=== PATIENT | female | born 1965 | race Caucasian/White ===

== ENCOUNTER 2016-07-09 11:40 | Day surgery (SDC) | payer OTHER ==
[2016-07-08 11:43] VITALS: BMI 33.2
[2016-07-09 12:47] VITALS: TEMP 97.6
[2016-07-09 13:12] VITALS: PULSE 70
[2016-07-09 14:01] VITALS: BP 116/70
--- NOTE | 2016-07-10 11:56 | PATH ---
Surgical Pathology Report Patient Name: STEPHANIE MOE [facility]. Rec. #: [id number] /Age/Gender: 1965 (Age: 51) / F Account: [id number] Location: [facility]-ENDOS[facility] Taken: 07/09/2016 Received: 07/09/2016 Reported: 07/10/2016 Physicians: Christofer Moreau D.O. Specimen(s) Received A: BX RIGHT COLON B: BX TRANSVERSE COLON C: BX LEFT COLON Clinical History Diarrhea Hemorrhoids, diverticulosis Final Diagnosis A. COLON, RIGHT, BIOPSY: COLONIC MUCOSA WITH RARE LAMINA PROPRIA NEUTROPHILS AND MILD FOCAL INCREASE IN EOSINOPHILS (SEE COMMENT). NO EVIDENCE OF SIGNIFICANT ARCHITECTURAL DISTORTION, GRANULOMATA OR DYSPLASIA; NO EVIDENCE OF MICROSCOPIC COLITIS. Comment: These findings are non-specific and may represent mild inflammation due to infections or drug/toxin injury. No significant features of chronicity are seen. No definitive histologic features of microscopic colitis are identified. Clinical and endoscopic correlations are suggested. B. COLON, TRANSVERSE, BIOPSY: COLONIC MUCOSA WITHOUT SIGNIFICANT PATHOLOGIC CHANGES. NO EVIDENCE OF ACTIVE INFLAMMATION, SIGINIFICANT ARCHITECTURAL DISTORTION, GRANULOMATA OR DYSPLASIA; NO EVIDENCE OF MICROSCOPIC COLITIS. C. COLON, LEFT, BIOPSY: COLONIC MUCOSA WITH FOCAL SMALL NON-SPECIFIC MUCOSAL HEMORRHAGE. NO EVIDENCE OF ACTIVE INFLAMMATION, SIGINIFICANT ARCHITECTURAL DISTORTION, GRANULOMATA OR DYSPLASIA; NO EVIDENCE OF MICROSCOPIC COLITIS. Electronically Signed Rahul Garcia M.D. Gross Description A. Received in formalin, labeled "biopsy right colon" are 2 landry, irregular portions of soft tissue averaging 0.3 cm in greatest dimension. The specimens are submitted in toto in one cassette. B. Received in formalin, labeled "biopsy transverse colon" are 5 landry, irregular portions of soft tissue ranging from 0.1-0.5 cm in greatest dimension. The specimens are submitted in toto in one cassette. C. Received in formalin, labeled "biopsy left colon" is a landry, irregular portion of soft tissue measuring 0.2 cm in greatest dimension. The specimen is submitted in toto in one cassette. 07/09/2016 saudi07/09/2016
== END 2016-07-09 14:01 | disposition home or self-care (01) ==
LOC: JASU-ENDO 11:40
PROVIDERS: ATTEND Internal Medicine Gastroenterology
PROC: 0DBL8ZX Excision of Transverse Colon, Via Natural or Artificial Opening Endoscopic, Diagnostic (ICD-10-PCS; 2016-07-09)
PROC: 0DBM8ZX Excision of Descending Colon, Via Natural or Artificial Opening Endoscopic, Diagnostic (ICD-10-PCS; 2016-07-09)
PROC: 0DBK8ZX Excision of Ascending Colon, Via Natural or Artificial Opening Endoscopic, Diagnostic (ICD-10-PCS; principal; 2016-07-09 12:00)
DX: R19.7 Diarrhea, unspecified (principal); K57.30 Diverticulosis of large intestine without perforation or abscess without bleeding; K64.0 First degree hemorrhoids; F41.9 Anxiety disorder, unspecified; F31.9 Bipolar disorder, unspecified; J45.909 Unspecified asthma, uncomplicated; E03.9 Hypothyroidism, unspecified; M19.90 Unspecified osteoarthritis, unspecified site; M79.7 Fibromyalgia
CPT/HCPCS: 84703; 87045; 87046; 87177; 87207; 87209; 87328; 87329; 88305-TC

== ENCOUNTER 2016-08-10 19:45 | Emergency (ER) | payer OTHER ==
[2016-08-10] MEDS ORDERED: TETRACAINE 0.5% HCL 0.6ML DROPPER.BOTTLE OD ONE (19:52)
[2016-08-10 19:53] VITALS: BMI 32.6
--- NOTE | 2016-08-10 19:59 | PDOC ---
Rapid Medical Evaluation Chief Complaint: Eye Problem Time Seen by Provider: 08/10/16 19:48 Medical Evaluation: Allergies Allergy/AdvReac Type Severity Reaction Status Date / Time latex Allergy Verified 08/10/16 19:50 walnuts Allergy Uncoded 08/10/16 19:50 Vital Signs Temp Pulse Resp BP Pulse Ox 98.5 F 83 18 151/86 99 08/10/16 19:50 08/10/16 19:50 08/10/16 19:50 08/10/16 19:50 08/10/16 19:50 08/10/16 19:55 RME Note: I have performed a brief, in-person evaluation of this patient . This patient presents with CC: Severe right eye pain x 2 hours in back of eye; with vision changes; wore contacts yesterday Pertinent PE findings are: ID fingers; no redness/ drainage I have ordered: tetracaine= only slight relief relieve The patient will proceed to ED for further evaluation.
[2016-08-10] MEDS ORDERED: TETRACAINE 0.5% OPHTH SOLN 2 ML BOTTLE ONE (20:47)
--- NOTE | 2016-08-10 21:16 | PDOC ---
History of Present Illness - General Chief Complaint: Eye Problem Stated Complaint: RT EYE PAIN/SWOLLEN/HEADACHE Time Seen by Provider: 08/10/16 19:48 - History of Present Illness Initial Comments: 08/10/16 21:15 CHIEF COMPLAINT: eye pain/headache HISTORY OF PRESENT ILLNESS: 51 yo F with hx of migraines, chronic back pain, lupus, fibromyalgia, hypothyroidism, GERD,asthma presents to ED with severe pain to right eye and CASTREJON x 6 hours. Patient states that the pain began on the left side of her head and moved to the right side quickly, and the R eye feels much worse. She does report discomfort behind her R eye as well as to her R religious. She also reports blurry vision to both eyes and reports that she has had intermittent vision changes to her R eye for 3 weeks, and even after getting new glasses she will have sudden vision loss to her R eye, sometimes even while driving. She states this does not feel like any migraine she has ever had. No recent travel or sick contacts. PAST MEDICAL HISTORY: Denies past medical history FAMILY HISTORY: Denies SOCIAL HISTORY: Marijuana use. Denies tobacco, alcohol, illicit drug use. SURGICAL HISTORY: Denies ALLERGIES: latex, walnuts REVIEW OF SYSTEMS General/Constitutional: Denies fever or chills. Denies weakness, weight change. HEENT: Pain to R eye x 6 hours, initally started from left eye. Blurry vision. Denies ear pain or discharge. Denies sore throat. Cardiovascular: Denies chest pain or shortness of breath. Respiratory: Denies cough, wheezing, or hemoptysis. Gastrointestinal: Denies nausea, vomiting, diarrhea or constipation. Denies rectal bleeding. Genitourinary: Denies dysuria, frequency, or change in urination. Musculoskeletal: Denies joint or muscle swelling or pain. Denies neck or back pain. Skin and breasts: Denies rash or easy bruising. Neurologic: Headache x 6 hours. Denies vertigo, loss of consciousness, or loss of sensation. PHYSICAL EXAM General Appearance: Well-appearing, appropriately dressed. No apparent distress. HEENT: Tenderness to R religious on palpation, patient with difficulty opening eyes , mild tearing bilaterally. EOMI, PERRLA, normal ENT inspection, normal voice, TMs normal, pharynx normal. No conjunctival pallor. No photophobia, scleral icterus. Respiratory/Chest: Lungs CTAB. Cardiovascular: RRR. S1, S2. Gastrointestinal/Abdominal: Normal bowel sounds. Abdomen soft, non-distended. No tenderness or rebound tenderness. No organomegaly, pulsatile mass, guarding , hernia, hepatomegaly, splenomegaly. Lymphatic: No adenopathy, tenderness. Musculoskeletal/Extremities: Normal inspection. FROM of all extremities, normal capillary refill. Pelvis Stable. No CVA tenderness. No tenderness to extremities, pedal edema, swelling, erythema or deformity. Integumentary: Appropriate color, dry, warm. No cyanosis, erythema, jaundice or rash Neurologic: alignment mechanic II-XII intact. Fully oriented, alert. Appropriate mood/affect. Motor strength 5/5. No appreciable EOM palsy, facial droop or sensory deficit. A&Ox3, follow commands, respond appropriately CN2-12: conjugate gaze, pupil round, equal and reactive to light. Visual field full to confrontation. EOMI without nystagmus, pursuit is smooth without saccade. Facial sensation and muscle activation intact bilaterally. Hearing intact bilaterally. Palate elevate symmetrically. Shoulder shrug and neck turn full strength. Tongue protrude midline. Motor: UE and LE strength 5/5 throughout bilaterally. Muscle tone and bulk normal. Cerebellar: Rapid-alternating movement with regular rhythm without bradykinesia. Bowhlx-ua-glil and wolp-ko-bcgn intact bilaterally without dysmetria or overshoot. Gait narrow based. No shuffling. Full hip flexion and knee flexion. Negative Romberg No involuntary movement noted. No pronator drift. No clonus. Past History - Past Medical History Allergies/Adverse Reactions: Allergies Allergy/AdvReac Type Severity Reaction Status Date / Time latex Allergy Verified 08/10/16 19:50 walnuts Allergy Uncoded 08/10/16 19:50 Home Medications: Ambulatory Orders Butalb/Acetaminophen/Caffeine [Fioricet 50-300-40 mg Capsule] 1 each PO BID PRN #20 capsule 04/12/16 Diphenhydramine HCl [Benadryl Capsule -] 25 mg PO BID PRN #15 capsule 04/12/16 Magnesium Oxide [Mag-Ox -] 400 mg PO BID #60 tablet 04/12/16 Levothyroxine Sodium [Synthroid] 200 mcg PO ACHS 07/09/16 Levothyroxine [Synthroid -] 300 mcg PO ASDIR 07/09/16 Paroxetine HCl [Paxil] 40 mg PO DAILY 07/09/16 Prednisone [Deltasone -] 40 mg PO DAILY #20 tablet 08/10/16 Anemia: No Asthma: Yes (STRESS RELATED) Cancer: No Cardiac Disorders: No CVA: No COPD: No CHF: No Dementia: No Diabetes: No GI Disorders: Yes (GERD,IBS) Disorders: No HTN: No Hypercholesterolemia: No Liver Disease: No Psychiatric Problems: Yes (Panic Disorder) Suicide Attempt (Hx): No Seizures: No Thyroid Disease: Yes (HYPOTHYROIDISM) - Surgical History Abdominal Surgery: No Appendectomy: No Cardiac Surgery: No Cholecystectomy: No Lung Surgery: No Neurologic Surgery: Yes (NEUROSTIMULATOR IN SPINE) Orthopedic Surgery: Yes ([place] KNEE ARTHROSCOPY) - Psycho/Social/Smoking Cessation Hx Anxiety: Yes Suicidal Ideation: No Smoking Status: Yes Smoking History: Never smoked Have you smoked in the past 12 months: Yes Number of Cigarettes Smoked Daily: 0 If you are a former smoker, when did you quit?: 3MONTHS AGO Information on smoking cessation initiated: No 'Breaking Loose' booklet given: 04/10/16 Hx Alcohol Use: No Drug/Substance Use Hx: No Substance Use Type: None Hx Substance Use Treatment: No *Physical Exam - Vital Signs Last Vital Signs Temp Pulse Resp BP Pulse Ox 98.5 F 83 18 151/86 99 08/10/16 19:50 08/10/16 19:50 08/10/16 19:50 08/10/16 19:50 08/10/16 19:50 ED Treatment Course - LABORATORY CBC & Chemistry Diagram: 08/10/16 22:50 08/10/16 22:50 - Medications Given in the ED: ED Medications Discontinued Medications Generic Name Dose Route Start Last Admin Trade Name Freq PRN Reason Stop Dose Admin Tetracaine HCl 1 drop 08/10/16 19:52 08/10/16 20:47 Tetravisc 0.5% Eye Drops - OD 08/10/16 19:53 1 drop ONCE ONE Administration Medical Decision Making - Medical Decision Making 08/10/16 21:29 51 yo F with hx of migraines, chronic back pain, lupus, thyroid disorder, GERD, panic d/o, asthma presents to ED with severe pain to right eye and CASTREJON x 6 hours. Patient is neurologically intact and had negative head CTA and CT 5 months ago. Strong suspicion for vision loss secondary to giant cell arteritis. -CBC, CMP, ESR, CRP -Methylprednisone 1 g IVPB Patient will require f/u with neuro and ophtho for biopsy. -40 mg prednisone po daily Labs: ESR 48, CRP 0.6 - increased suspicion for GCA. Advised patient to follow up with ophtho and neurology within the the next 1-2 days. Advised patient of signs and symptoms for return to ER; patient verbalized understanding and agrees to plan. *DC/Admit/Observation/Transfer Diagnosis at time of Disposition: Temporal arteritis - Discharge Dispostion Disposition: HOME Condition at time of disposition: Stable Admit: No - Prescriptions Prescriptions: Prednisone [Deltasone -] 40 mg PO DAILY #20 tablet - Referrals Referrals: Mary Moon [Primary Care Provider] - Ponce Churchill MD [Staff Physician] - Flako Champion MD [Staff Physician] - - Patient Instructions Printed Discharge Instructions: Temporal Arteritis Additional Instructions: As discussed, you must follow up with an community development manager and neurologist WITHIN 1-2 days for further evaluation and management of your eye and head pain. If you experience slurred speech, difficulty walking, chest pain, shortness of breath, "curtain-shade" like change in vision, one-sided facial droop, or any new or worsening symptoms, please return to the ER.
[2016-08-10] MEDS ORDERED: predniSONE 20 MG TABLET (UD) PO ONE (21:25)
[2016-08-10] MEDS ORDERED: methylPREDNISolone NA SUCC 1000 MG/8 ML VIAL IVPB ONE (21:36)
[2016-08-10] MEDS ORDERED: methylPREDNISolone NA SUCC 1000 MG/8 ML VIAL ONE (22:59)
[2016-08-10 23:07] LABS: BASOPHIL 1.5 % (0-2.0); EOSINOPHIL 1.8 % (0-4.5); MCH 29.5 pg (25.7-33.7); MCHC 33.3 g/dl (32.0-36.0); MEAN CELL VOLUME 88.6 fl (80-96); MEAN PLT VOLUME 8.5 fl (7.5-11.1); PLATELET COUNT 283 K/MM3 (134-434); RDW 15.2 % (11.6-15.6); WHITE BLOOD COUNT 8.5 K/mm3 (4.0-10.0)
[2016-08-10] MEDS ORDERED: KETOROLAC TROMETHAMINE 30 MG/1 ML VIAL IM ONE (23:37)
[2016-08-10] MEDS ORDERED: KETOROLAC TROMETHAMINE 30 MG/1 ML VIAL IVPUSH ONE (23:40)
[2016-08-10] MEDS ORDERED: KETOROLAC TROMETHAMINE 30 MG/1 ML VIAL ONE (23:51)
[2016-08-10 23:52] LABS: ALBUMIN 3.7 g/dl (3.4-5.0); ALK PHOS 85 U/L (45-117); ANION GAP 7 (8-16); BILIRUBIN,TOTAL 0.2 mg/dL (0.2-1.0); C-REACTIVE PROTEIN 0.6 MG/DL (0.00-0.3); CALCIUM 9.1 mg/dL (8.5-10.1); CO2 28 mmol/L (21-32); CREATININE 0.7 mg/dL (0.55-1.02); GLUCOSE,RANDOM 93 mg/dL (74-106); SGOT/AST 17 U/L (15-37); SGPT/ALT 22 U/L (12-78); TOT PROT 7.6 g/dl (6.4-8.2)
[2016-08-11 00:32] VITALS: BP 102/66; PULSE 80; TEMP 98.1
== END 2016-08-11 00:32 | disposition home or self-care (01) ==
LOC: JER 19:45
PROC: 3E0333Z Introduction of Anti-inflammatory into Peripheral Vein, Percutaneous Approach (ICD-10-PCS; principal; 2016-08-10)
DX: M31.6 Other giant cell arteritis (principal); J45.909 Unspecified asthma, uncomplicated; K21.9 Gastro-esophageal reflux disease without esophagitis; E03.9 Hypothyroidism, unspecified; F41.0 Panic disorder [episodic paroxysmal anxiety]
CPT/HCPCS: 36415; 80053; 85025; 85651; 86140; 96374; 96375; 99282-25

== ENCOUNTER 2016-08-13 07:51 | Day surgery (SDC) | payer OTHER ==
[2016-08-13 08:31] VITALS: BMI 33.3
[2016-08-13] MEDS ORDERED: LIDOCAINE HCL 1%, 10 MG/ML (20ML VIAL) ONE (08:47)
[2016-08-13] MEDS ORDERED: SUCCINYLCHOLINE CHLORIDE 200 MG/10 ML VIAL ONE (10:40)
[2016-08-13] MEDS ORDERED: PROPOFOL 20 ML ONE ×3 (10:40→11:10)
[2016-08-13] MEDS ORDERED: MIDAZOLAM HCL 2 MG/2 ML SINGLE DOSE VIAL ONE (10:40)
[2016-08-13] MEDS ORDERED: ceFAZolin SODIUM 1 GM VIAL ONE (10:45)
[2016-08-13] MEDS ORDERED: ceFAZolin SODIUM 1 GM VIAL IVPB ONE (10:50)
[2016-08-13] MEDS ORDERED: LIDOCAINE HCL 1%, 10 MG/ML (20ML VIAL) IJ ONE (10:55)
[2016-08-13] MEDS ORDERED: DEXAMETHASONE SOD PHOSPHATE 4 MG/1 ML VIAL ONE (11:08)
--- NOTE | 2016-08-13 11:40 | OP ---
Operative Note - Note: Operative Date: 08/13/16 Pre-Operative Diagnosis: R/O Temporal arteritis Operation: right temporal artery biopsy Post-Operative Diagnosis: Same as Pre-op Surgeon: Kingston Vizcarra Anesthesia: Fractional Estimated Blood Loss (mls): 5 Operative Report Dictated: Yes
--- NOTE | 2016-08-13 11:41 | HP ---
Admitting History and Physical - Admission Chief Complaint: bilateral visual distubance with headaches - Past Medical History ...LMP: 07/06/16 Rheumatology: Yes: Lupus, Rheumatoid Arthritis - Smoking History Smoking history: Former smoker Have you smoked in the past 12 months: Yes Aproximately how many cigarettes per day: 0 If you are a former smoker, when did you quit?: 3MONTHS AGO - Alcohol/Substance Use Hx Alcohol Use: No Home Medications - Allergies Allergies/Adverse Reactions: Allergies Allergy/AdvReac Type Severity Reaction Status Date / Time latex Allergy Verified 08/10/16 19:50 walnuts Allergy Uncoded 08/10/16 19:50 - Home Medications Home Medications: Ambulatory Orders Butalb/Acetaminophen/Caffeine [Fioricet 50-300-40 mg Capsule] 1 each PO BID PRN #20 capsule 04/12/16 Diphenhydramine HCl [Benadryl Capsule -] 25 mg PO BID PRN #15 capsule 04/12/16 Levothyroxine Sodium [Synthroid] 200 mcg PO ACHS 07/09/16 Levothyroxine [Synthroid -] 300 mcg PO ASDIR 07/09/16 Paroxetine HCl [Paxil] 40 mg PO DAILY 07/09/16 Prednisone [Deltasone -] 40 mg PO DAILY #20 tablet 08/10/16 Albuterol Sulfate Inhaler - [Ventolin Hfa Inhaler -] 1 - 2 inh PO QID 08/13/16 Budesonide/Formeterol Fumarate [SYMBICORT 160/4.5mcg -] 1 inh PO BID 08/13/16 Magnesium Oxide [Mag-Ox -] 400 mg PO BID PRN 08/13/16 Physical Examination Vital Signs: Vital Signs Temperature 97.7 F 08/13/16 08:35 Pulse Rate 78 08/13/16 08:35 Respiratory Rate 20 08/13/16 08:35 Blood Pressure 136/63 08/13/16 08:35 O2 Sat by Pulse Oximetry (%) 98 08/13/16 08:34 Constitutional: Yes: Well Nourished Eyes: Yes: WNL HENT: Yes: WNL Neck: Yes: WNL Cardiovascular: Yes: WNL Respiratory: Yes: WNL Gastrointestinal: Yes: WNL Assessment/Plan Bilateral visual loss with headaches. Elevated CRP Sent to office by neurology for TAB 1. Will do biopsy of temporal artery today
[2016-08-13] MEDS ORDERED: PROMETHAZINE HCL 25 MG/1 ML VIAL IVPUSH PRN (11:49)
[2016-08-13] MEDS ORDERED: ONDANSETRON 4 MG/2 ML VIAL IVPUSH PRN (11:49)
[2016-08-13] MEDS ORDERED: LACTATED RINGERS SOLUTION 1,000 ML IV SCH (12:00)
[2016-08-13 13:33] VITALS: TEMP 98.2
[2016-08-13 15:00] VITALS: BP 137/85; PULSE 92
--- NOTE | 2016-08-14 10:42 | OP ---
PROCEDURE: Right temporal artery biopsy PREOPERATIVE DIAGNOSIS: Rule out temporal arteritis. POSTOPERATIVE DIAGNOSIS: Rule out temporal arteritis. TOTAL BLOOD LOSS: 5 mL. INDICATION: The patient is a 51-year-old female that has bilateral visual disturbances for the last 2 days with blurriness, with headaches as well. She had gone to the ER where they gave her IV steroids. Went to see her neurologist as well who recommended she needed temporal artery biopsy, and she was sent to our office. Patient then came to ambulatory surgery where she consented for the procedure, understanding all risks, benefits, alternatives. Was then taken to the operating room. PROCEDURE: Once in the operating room, she was laid on the operating table in supine manner, and the right temporal region was prepped in a sterile, surgical manner. Using a skin marker, we killian a 3-cm incision over the pulse over the temporal artery, then went ahead and injected 10 mL 1% lidocaine in the area. We then went ahead with a 15 blade made a 3-cm incision. Electrocautery was used to control hemostasis and we were able to get down to the subcutaneous tissue and get down to the sheath. The sheath was then opened, and the temporal artery was visualized. Once the temporal artery was then dissected anteriorly and posteriorly using 4-0 Silk, we were able to ligate the artery proximally and distally. We then transected the artery and sent it to pathology. The wound was well irrigated. 3-0 Vicryl was used, and the subcutaneous tissue was approximated in an interrupted manner. Skin was closed with 4-0 Biosyn in a subcuticular running fashion. Area was and dried, and 2 Steri-Strips were placed. Patient tolerated the procedure with no complications. Patient was transferred to the PACU in stable condition. Total blood loss: 5 mL. JEOVANY WARNER DO NP/[id number]
--- NOTE | 2016-08-14 12:08 | PATH ---
Surgical Pathology Report Patient Name: STEPHANIE MOE [facility]. Rec. #: [id number] /Age/Gender: 1965 (Age: 51) / F Account: [id number] Location: [facility] SURGICAL Taken: 08/13/2016 Received: 08/13/2016 Reported: 08/14/2016 Physicians: Kingston Mendieta M.D. Specimen(s) Received RIGHT TEMPORAL ARTERY BIOPSY Clinical History Rule out temporal arteritis Final Diagnosis TEMPORAL ARTERY, RIGHT, BIOPSY: SEGMENT OF MUSCULAR ARTERY WITH NO EVIDENCE OF ARTERITIS. MULTIPLE LEVELS EXAMINED. Electronically Signed Rahul Garcia M.D. Gross Description Received in formalin labeled "right temporal artery biopsy" is a 1.3 cm in length x 0.1 cm in diameter portion of vasculature, consistent with a segment of an artery. The specimen is serially sectioned and entirely submitted in one cassette. /08/13/2016 saudi08/13/2016
== END 2016-08-13 15:03 | disposition home or self-care (01) ==
LOC: JASU-SURG 07:51
PROVIDERS: ATTEND Surgery Vascular Surgery
PROC: 03BS0ZX Excision of Right Temporal Artery, Open Approach, Diagnostic (ICD-10-PCS; principal; 2016-08-13 10:00)
DX: M31.6 Other giant cell arteritis (principal)
CPT/HCPCS: 84703; 88305-TC; 94760

== ENCOUNTER 2016-08-21 15:05 | Emergency (ER) | payer OTHER ==
[2016-08-21 16:08] VITALS: BMI 32.8
[2016-08-21] MEDS ORDERED: morphine CARPU-JECT 4 MG/1 ML DISP.SYRIN IVPUSH ONE (16:16)
--- NOTE | 2016-08-21 16:20 | PDOC ---
History of Present Illness - General Chief Complaint: Pain, Acute Stated Complaint: RT FACIAL PAIN,S/P TEMPORAL ARTERITIS Time Seen by Provider: 08/21/16 15:41 History Source: Patient Exam Limitations: No Limitations - History of Present Illness Initial Comments: 08/21/16 16:20 CHIEF COMPLAINT: Headache HISTORY OF PRESENT ILLNESS: This is a 51 year old female with a history of migraines, chronic back pain, lupus, fibromyalgia, hypothyroidism, GERD, and asthma seen on 08/10 for right-sided headache and started on prednisone for possible temporal arteritis. She completed the course of prednisone yesterday. She underwent temporal artery biopsy on 08/17, and it was negative. She reports no improvement in headache. She has associated nausea, photophobia, and transient blurred vision. She states this is not typical of her previous migraine headaches. V/s on arrival are unremarkable. REVIEW OF SYSTEMS: GENERAL/CONSTITUTIONAL: No fever or chills. No weakness. No weight change. HEAD, EYES, EARS, NOSE AND THROAT: Transient "murky" vision, normal currently. No ear pain or discharge. No sore throat. CARDIOVASCULAR: No chest pain or palpitations. RESPIRATORY: No cough, wheezing, or shortness of breath. GASTROINTESTINAL: Nausea. No vomiting, diarrhea or constipation. GENITOURINARY: No dysuria, frequency, or change in urination. MUSCULOSKELETAL: No joint or muscle swelling or pain. No neck or back pain. SKIN: No rash or easy bruising. NEUROLOGIC: See HPI. PSYCHIATRIC: No depression or anxiety. ENDOCRINE: No increased thirst. No abnormal weight change. HEMATOLOGIC/LYMPHATIC: No anemia, easy bleeding, or history of blood clots. ALLERGIC/IMMUNOLOGIC: No hives or skin allergy. No latex allergy. PHYSICAL EXAM: GENERAL: The patient is awake, alert, and fully oriented, in no acute distress. HEAD: Right temporal biopsy site clean and dry. ENT: Pupils equal, round and reactive to light, extraocular movements intact, sclera anicteric, conjunctiva clear. Neck supple. LUNGS: Clear to auscultation bilaterally. Normal excursion. No respiratory distress or use of accessory muscles. CV: RRR, S1/S2, no MRG. Cap refill < 2 sec. ABDOMEN: Soft, non-distended, non-tender. EXTREMITIES: Normal range of motion, no edema. NEUROLOGICAL: Normal speech, normal gait. CN II-XII grossly intact. PSYCH: Normal mood, normal affect. SKIN: Warm, dry, normal turgor, no rashes or lesions noted. Past History - Past Medical History Allergies/Adverse Reactions: Allergies Allergy/AdvReac Type Severity Reaction Status Date / Time latex Allergy Verified 08/21/16 15:09 walnuts Allergy Uncoded 08/21/16 15:09 Home Medications: Ambulatory Orders Butalb/Acetaminophen/Caffeine [Fioricet 50-300-40 mg Capsule] 1 each PO BID PRN #20 capsule 04/12/16 Diphenhydramine HCl [Benadryl Capsule -] 25 mg PO BID PRN #15 capsule 04/12/16 Levothyroxine Sodium [Synthroid] 200 mcg PO ACHS 07/09/16 Levothyroxine [Synthroid -] 300 mcg PO ASDIR 07/09/16 Paroxetine HCl [Paxil] 40 mg PO DAILY 07/09/16 Albuterol Sulfate Inhaler - [Ventolin Hfa Inhaler -] 1 - 2 inh PO QID 08/13/16 Budesonide/Formeterol Fumarate [SYMBICORT 160/4.5mcg -] 1 inh PO BID 08/13/16 Magnesium Oxide [Mag-Ox -] 400 mg PO BID PRN 08/13/16 Anemia: No Asthma: Yes Cancer: No Cardiac Disorders: No CVA: No COPD: No CHF: No Dementia: No Diabetes: No GI Disorders: Yes (GERD,IBS) Disorders: Yes (H/O KIDNEY STONE) HTN: No Hypercholesterolemia: No Liver Disease: No Psychiatric Problems: Yes (Panic Disorder) Suicide Attempt (Hx): No Seizures: No Thyroid Disease: Yes (HYPOTHYROIDISM) - Surgical History Abdominal Surgery: No Appendectomy: No Cardiac Surgery: No Cholecystectomy: No Lung Surgery: No Neurologic Surgery: Yes (NEUROSTIMULATOR IN SPINE 2005) Orthopedic Surgery: Yes ([place] KNEE ARTHROSCOPY 2014) - Psycho/Social/Smoking Cessation Hx Anxiety: Yes Suicidal Ideation: No Smoking Status: Yes Smoking History: Former smoker Have you smoked in the past 12 months: No Number of Cigarettes Smoked Daily: 0 If you are a former smoker, when did you quit?: 3MONTHS AGO Information on smoking cessation initiated: No 'Breaking Loose' booklet given: 04/10/16 Hx Alcohol Use: No Drug/Substance Use Hx: Yes (MARIJUANA) Substance Use Type: Marijuana Hx Substance Use Treatment: No *Physical Exam - Vital Signs Last Vital Signs Temp Pulse Resp BP Pulse Ox 98.6 F 82 19 144/77 98 08/21/16 15:09 08/21/16 15:09 08/21/16 15:09 08/21/16 15:09 08/21/16 15:09 ED Treatment Course - LABORATORY CBC & Chemistry Diagram: 08/21/16 16:29 08/21/16 16:29 Medical Decision Making - Medical Decision Making 08/21/16 16:50 A/P: 51 year old female with headache, nausea, photophobia, visual changes. Biopsy negative for temporal arteritis. 1. Head CT - not done during prior visit 2. Trial of morphine 4mg IVP, Reglan 10mg IVPB, benadryl 12.5mg IVP 3. Re-assess 08/21/16 18:01 CTH: No acute intracranial process. 08/21/16 18:09 Headache resolved. 08/21/16 18:28 WBC mildly elevated at 12.6; suspect secondary to prednisone. *DC/Admit/Observation/Transfer Diagnosis at time of Disposition: Headache Qualifiers: Headache type: unspecified Headache chronicity pattern: acute headache Intractability: not intractable Qualified Code(s): R51 - Headache - Discharge Dispostion Admit: No - Referrals Referrals: Ching Ocampo MD [Staff Physician] - Call tomorrow - Patient Instructions Printed Discharge Instructions: DI for Migraine Additional Instructions: You were seen today for headache. Your biopsy was negative for temporal arteritis. Your CT scan did not show any acute abnormalities. Symptoms may be related to complex migraine. Continue all of your prescribed medications. Follow up with the neurologist (referral enclosed). Return here for any new or worsening symptoms.
[2016-08-21] MEDS ORDERED: METOCLOPRAMIDE HCL INJECTION 10 MG/2 ML VIAL IVPB ONE (16:27)
[2016-08-21] MEDS ORDERED: morphine CARPU-JECT 4 MG/1 ML DISP.SYRIN ONE (16:45)
[2016-08-21] MEDS ORDERED: METOCLOPRAMIDE HCL INJECTION 10 MG/2 ML VIAL ONE (16:46)
[2016-08-21 17:53] LABS: BASOPHIL 0.8 % (0-2.0); EOSINOPHIL 0.4 % (0-4.5); MCH 29.2 pg (25.7-33.7); MEAN CELL VOLUME 88.4 fl (80-96); MEAN PLT VOLUME 8.8 fl (7.5-11.1); NEUTROPHILS 67.3 % (42.8-82.8); PLATELET COUNT 275 K/MM3 (134-434); RDW 14.9 % (11.6-15.6); WHITE BLOOD COUNT 12.6 K/mm3 (4.0-10.0)
[2016-08-21 18:19] LABS: ALBUMIN 3.5 g/dl (3.4-5.0); ANION GAP 9 (8-16); CALCIUM 8.6 mg/dL (8.5-10.1); CO2 30 mmol/L (21-32); CREATININE 0.8 mg/dL (0.55-1.02); GLUCOSE,RANDOM 80 mg/dL (74-106); SGOT/AST 14 U/L (15-37); SGPT/ALT 34 U/L (12-78)
[2016-08-21 18:20] LABS: ALK PHOS 82 U/L (45-117); BILIRUBIN,TOTAL 0.2 mg/dL (0.2-1.0); TOT PROT 7.5 g/dl (6.4-8.2)
[2016-08-21 18:36] LABS: C-REACTIVE PROTEIN 0.6 MG/DL (0.00-0.3)
[2016-08-21 18:51] VITALS: BP 132/76; PULSE 79; TEMP 98.1
[2016-08-21 20:04] LABS: URINE APPEARANCE SLCLOUDY; URINE BILIRUBIN NEGATIVE (NEGATIVE); URINE BLOOD NEGATIVE (NEGATIVE); URINE COLOR YELLOW; URINE GLUCOSE (UA) NEGATIVE (NEGATIVE); URINE KETONE NEGATIVE (NEGATIVE); URINE NITRITE NEGATIVE (NEGATIVE); URINE PROTEIN NEGATIVE (NEGATIVE); URINE UROBILINOGEN NEGATIVE E.U./dl (0.2-1.0)
[2016-08-21 20:06] LABS: URINE LEUK ESTERASE 3+ (NEGATIVE)
[2016-08-21 20:08] LABS: URINE MUCUS FEW; URINE RBC 2 /hpf (0-3); URINE WBC 25 /hpf (3-5)
[2016-08-21 22:04] LABS: ERYTHROCYTE SEDIMENTATION RATE 32 mm/hr (0-30)
== END 2016-08-21 18:58 | disposition home or self-care (01) ==
LOC: JER 15:05
PROC: 3E033GC Introduction of Other Therapeutic Substance into Peripheral Vein, Percutaneous Approach (ICD-10-PCS; principal; 2016-08-21)
PROC: 3E033NZ Introduction of Analgesics, Hypnotics, Sedatives into Peripheral Vein, Percutaneous Approach (ICD-10-PCS; 2016-08-21)
DX: R51 Headache (principal); G43.909 Migraine, unspecified, not intractable, without status migrainosus; J45.909 Unspecified asthma, uncomplicated; E03.9 Hypothyroidism, unspecified; K21.9 Gastro-esophageal reflux disease without esophagitis; M79.7 Fibromyalgia
CPT/HCPCS: 36415; 70450-TC; 80053; 81003; 81015; 85025; 85651; 86140; 96374; 96375; 99284-25

== ENCOUNTER 2016-09-21 19:16 | Emergency (ER) | payer OTHER ==
[2016-09-21 19:45] VITALS: BP 137/78; PULSE 81; TEMP 98.9; BMI 32.8
[2016-09-21] MEDS ORDERED: IBUPROFEN 400 MG TABLET (FP) PO ONE ×2 (21:07→21:10)
[2016-09-21] MEDS ORDERED: TOBRA 0.3%/DEXAMETH 0.1% OPHTHALMIC SUSP 2.5 ML BTL OU STA (21:09)
[2016-09-21] MEDS ORDERED: TOBRAMYCIN 0.3% OPHTH SOLN 5 ML BOTTLE ONE (21:13)
--- NOTE | 2016-09-21 21:13 | PDOC ---
History of Present Illness - General Chief Complaint: Eye Problem Stated Complaint: LT EYE PROBLEM Time Seen by Provider: 09/21/16 20:55 History Source: Patient Exam Limitations: No Limitations - History of Present Illness Initial Comments: 09/22/16 20:12 51 yr female with false eyelashes placed with glue pt has itching and discharge to both eyes, burning sensation . Past History - Past Medical History Allergies/Adverse Reactions: Allergies Allergy/AdvReac Type Severity Reaction Status Date / Time latex Allergy Verified 09/21/16 19:43 walnuts Allergy Uncoded 09/21/16 19:43 Home Medications: Ambulatory Orders Butalb/Acetaminophen/Caffeine [Fioricet 50-300-40 mg Capsule] 1 each PO BID PRN #20 capsule 04/12/16 Diphenhydramine HCl [Benadryl Capsule -] 25 mg PO BID PRN #15 capsule 04/12/16 Levothyroxine Sodium [Synthroid] 200 mcg PO ACHS 07/09/16 Levothyroxine [Synthroid -] 300 mcg PO ASDIR 07/09/16 Paroxetine HCl [Paxil] 40 mg PO DAILY 07/09/16 Albuterol Sulfate Inhaler - [Ventolin Hfa Inhaler -] 1 - 2 inh PO QID 08/13/16 Budesonide/Formeterol Fumarate [SYMBICORT 160/4.5mcg -] 1 inh PO BID 08/13/16 Magnesium Oxide [Mag-Ox -] 400 mg PO BID PRN 08/13/16 Medical Marijuana [Medical Marijuana Oil] 1 inh IH QID PRN 08/28/16 Moxifloxacin HCl [Vigamox 0.5% Eye Drops -] 1 drop OU TID #2 bottle 09/21/16 Anemia: No Asthma: Yes Cancer: No Cardiac Disorders: No CVA: No COPD: No CHF: No Dementia: No Diabetes: No GI Disorders: Yes (GERD,IBS) Disorders: Yes (H/O KIDNEY STONE) HTN: No Hypercholesterolemia: No Liver Disease: No Psychiatric Problems: Yes (Panic Disorder) Suicide Attempt (Hx): No Seizures: No Thyroid Disease: Yes (HYPOTHYROIDISM) - Surgical History Abdominal Surgery: No Appendectomy: No Cardiac Surgery: No Cholecystectomy: No Lung Surgery: No Neurologic Surgery: Yes (NEUROSTIMULATOR IN SPINE 2005) Orthopedic Surgery: Yes ([place] [facility]N[place] ARTHROSCOPY 2014) - Psycho/Social/Smoking Cessation Hx Anxiety: Yes Suicidal Ideation: No Smoking Status: Yes Smoking History: Never smoked Have you smoked in the past 12 months: No Number of Cigarettes Smoked Daily: 0 If you are a former smoker, when did you quit?: 3MONTHS AGO Information on smoking cessation initiated: No 'Breaking Loose' booklet given: 04/10/16 Hx Alcohol Use: No Drug/Substance Use Hx: Yes (MARIJUANA) Substance Use Type: Marijuana Hx Substance Use Treatment: No *Physical Exam - Vital Signs Last Vital Signs Temp Pulse Resp BP Pulse Ox 98.9 F 81 18 137/78 98 09/21/16 19:43 09/21/16 19:43 09/21/16 19:43 09/21/16 19:43 09/21/16 19:43 - Physical Exam General Appearance: Yes: Nourished, Appropriately Dressed HEENT: positive: EOMI, NUVIA, Other (bilateral conjuncitval erythema with crusted discharge on upper lash line both eyes , tearing ) Extremity: positive: Normal Capillary Refill, Normal Inspection, Normal Range of Motion Integumentary: positive: Normal Color, Dry, Warm Neurologic: positive: Fully Oriented, Alert, Normal Mood/Affect, Normal Response , Motor Strength 5/5 Medical Decision Making - Medical Decision Making 09/22/16 20:07 cc: itchy eyes , irritation both eyes after having false eyelashes placed pt with tearing and discharge probable allergic reaction to the glue used on the eyelashes will prescribe antibiotic drops remove the lashes, benadryl for itching and follow up with the eye doctor pt agrees with plan all questions asked and answered *DC/Admit/Observation/Transfer Diagnosis at time of Disposition: Conjunctivitis Qualifiers: Conjunctivitis type: blepharoconjunctivitis Blepharoconjunctivitis type: contact Laterality: bilateral Qualified Code(s): H10.533 - Contact blepharoconjunctivitis, bilateral - Discharge Dispostion Disposition: HOME Condition at time of disposition: Good - Prescriptions Prescriptions: Moxifloxacin HCl [Vigamox 0.5% Eye Drops -] 1 drop OU TID #2 bottle - Referrals Referrals: Mary Moon [Primary Care Provider] - - Patient Instructions Additional Instructions: take ibuprofen as directed for pain cool compresses to the eyes remove the eyelashes use the prescribed antibiotic drops use the tobradex tonight until you can get the drops tomorrow instill 2 drops every 4-6hrs to each eye follow with your eye doctor call tomorrow to make appointment for follow up
== END 2016-09-21 21:20 | disposition home or self-care (01) ==
LOC: JERFT 19:16
DX: H10.533 Contact blepharoconjunctivitis, bilateral (principal); J45.909 Unspecified asthma, uncomplicated; E03.9 Hypothyroidism, unspecified; K21.9 Gastro-esophageal reflux disease without esophagitis; F41.0 Panic disorder [episodic paroxysmal anxiety]
CPT/HCPCS: 99281-25

== ENCOUNTER 2021-03-14 15:01 | Emergency (ER) | payer OTHER ==
[2021-03-14 15:21] VITALS: TEMP 98.7; BMI 31.3
[2021-03-14] MEDS ORDERED: PANTOPRAZOLE SODIUM 40 MG VIAL IVPUSH ONE (17:06)
[2021-03-14] MEDS ORDERED: morphine CARPU-JECT 4 MG/1 ML DISP.SYRIN IVPUSH ONE (17:06)
[2021-03-14] MEDS ORDERED: ONDANSETRON 4 MG/2 ML VIAL IVPUSH ONE (17:06)
[2021-03-14] MEDS ORDERED: KETOROLAC TROMETHAMINE 30 MG/1 ML VIAL IVPUSH ONE (17:07)
[2021-03-14] MEDS ORDERED: morphine SULFATE 4 MG/ML VIAL ONE ×2 (17:37→22:31)
[2021-03-14] MEDS ORDERED: KETOROLAC TROMETHAMINE 30 MG/1 ML VIAL ONE (17:37)
[2021-03-14] MEDS ORDERED: PANTOPRAZOLE SODIUM 40 MG VIAL ONE (17:38)
[2021-03-14] MEDS ORDERED: ONDANSETRON 4 MG/2 ML VIAL ONE (17:38)
[2021-03-14 18:14] LABS: BASO % 1.3 % (0-2.0); EOS % 1.2 % (0-4.5); HEMATOCRIT 37.7 % (32.4-45.2); HEMOGLOBIN 12.6 GM/dL (10.7-15.3); LYMPH % 34.7 % (8-40); MCH 31.2 pg (25.7-33.7); MCHC 33.3 g/dl (32.0-36.0); MEAN CELL VOLUME 93.5 fl (80-96); MEAN PLT VOLUME 9.3 fl (7.5-11.1); MONO % 5.7 % (3.8-10.2); NEUT % 57.1 % (42.8-82.8); PLATELET COUNT 247 10^3/uL (134-434); RBC 4.04 M/mm3 (3.60-5.2); RDW 13.2 % (11.6-15.6)
[2021-03-14 18:20] LABS: INR 1.01 (0.83-1.09); PROTHROMBIN TIME (PATIENT) 11.8 SEC (9.7-13.0)
[2021-03-14 18:31] LABS: CALCIUM 8.8 mg/dL (8.5-10.1)
[2021-03-14 18:32] LABS: ALBUMIN 3.5 g/dl (3.4-5.0); BLOOD UREA NITROGEN 19.6 mg/dL (7-18)
[2021-03-14 18:35] LABS: CREATININE 0.8 mg/dL (0.55-1.3)
[2021-03-14 18:37] LABS: BILIRUBIN,TOTAL 0.2 mg/dL (0.2-1); TOT PROT 7.5 g/dl (6.4-8.2)
[2021-03-14 19:29] VITALS: BP 110/74; PULSE 67
[2021-03-14] MEDS ORDERED: METOCLOPRAMIDE HCL INJECTION 10 MG/2 ML VIAL IVPUSH ONE (19:31)
[2021-03-14] MEDS ORDERED: METOCLOPRAMIDE HCL INJECTION 10 MG/2 ML VIAL ONE (19:35)
[2021-03-14 19:59] LABS: PH,URINE 5.5 (5.0-8.0); URINE APPEARANCE CLEAR; URINE BILIRUBIN NEGATIVE (NEGATIVE); URINE COLOR YELLOW; URINE GLUCOSE (UA) NEGATIVE (NEGATIVE); URINE KETONE NEGATIVE (NEGATIVE); URINE LEUK ESTERASE NEGATIVE (NEGATIVE); URINE NITRITE NEGATIVE (NEGATIVE); URINE PROTEIN NEGATIVE (NEGATIVE); URINE UROBILINOGEN 0.2 mg/dL (0.2-1.0)
[2021-03-14] MEDS ORDERED: morphine CARPU-JECT 2 MG/1 ML DISP.SYRIN IVPUSH ONE (22:26)
== END 2021-03-14 22:55 | disposition home or self-care (01) ==
LOC: JER 15:01
PROC: 3E0333Z Introduction of Anti-inflammatory into Peripheral Vein, Percutaneous Approach (ICD-10-PCS; principal; 2021-03-14)
PROC: 3E033GC Introduction of Other Therapeutic Substance into Peripheral Vein, Percutaneous Approach (ICD-10-PCS; 2021-03-14)
PROC: 3E033NZ Introduction of Analgesics, Hypnotics, Sedatives into Peripheral Vein, Percutaneous Approach (ICD-10-PCS; 2021-03-14)
PROC: 3E033NZ Introduction of Analgesics, Hypnotics, Sedatives into Peripheral Vein, Percutaneous Approach (ICD-10-PCS; 2021-03-14)
PROC: 3E033GC Introduction of Other Therapeutic Substance into Peripheral Vein, Percutaneous Approach (ICD-10-PCS; 2021-03-14)
PROC: 3E033GC Introduction of Other Therapeutic Substance into Peripheral Vein, Percutaneous Approach (ICD-10-PCS; 2021-03-14)
DX: R10.84 Generalized abdominal pain (principal)
CPT/HCPCS: 36415; 74177-TC; 76705-TC; 80053; 81003; 83605; 83690; 84443; 84703; 85025; 85610; 87086; 99285-25; Q9967

== ENCOUNTER 2021-04-15 04:33 | Day surgery (SDC) | payer OTHER ==
[2021-04-09 14:27] VITALS: BMI 32.8
[2021-04-15] MEDS ORDERED: KETAMINE HCL 500 MG/10 ML VIAL ONE (07:57)
[2021-04-15 08:26] VITALS: TEMP 97.5
[2021-04-15] MEDS ORDERED: ALBUTEROL SO4 HFA INHALER IH ONE (08:37)
[2021-04-15] MEDS ORDERED: ALBUTEROL SO4 0.083% IH SOL 2.5 MG/3 ML VIAL.NEB. NEB ONE (08:37)
[2021-04-15 09:16] VITALS: BP 126/79; PULSE 85
== END 2021-04-15 10:54 | disposition home or self-care (01) ==
LOC: JASU-ENDO 04:33
PROVIDERS: ATTEND Internal Medicine Gastroenterology
PROC: 0DB78ZX Excision of Stomach, Pylorus, Via Natural or Artificial Opening Endoscopic, Diagnostic (ICD-10-PCS; 2021-04-15)
PROC: 0DB38ZX Excision of Lower Esophagus, Via Natural or Artificial Opening Endoscopic, Diagnostic (ICD-10-PCS; 2021-04-15)
PROC: 0DB98ZX Excision of Duodenum, Via Natural or Artificial Opening Endoscopic, Diagnostic (ICD-10-PCS; principal; 2021-04-15 08:15)
DX: K21.00 Gastro-esophageal reflux disease with esophagitis, without bleeding (principal); K44.9 Diaphragmatic hernia without obstruction or gangrene; K29.50 Unspecified chronic gastritis without bleeding; R05.8 Other specified cough
CPT/HCPCS: 88305-TC; 88342-TC